=== PATIENT | female | born 2000 | race Caucasian/White ===

== ENCOUNTER → 2019-05-18 | Outpatient (CLI) | payer OTHER ==
[2019-05-18 12:26] LABS: INR 1.08; PARTIAL THROMBOPLASTIN TIME 26.8 SECONDS (25.0-38.4); PROTHROMBIN TIME 13.7 SECONDS (11.8-14.0)
[2019-05-18 12:44] LABS: ALBUMIN 3.7 GM/DL (3.2-5.2); ALT/SGPT 20 U/L (12-78); BILIRUBIN,DIRECT < 0.1 MG/DL (0.0-0.2); BILIRUBIN,TOTAL 0.3 MG/DL (0.2-1.0); IRON (FE) 49 UG/DL (50-170); PERCENT SATURATION 14.8 % (13.2-45.0); TOTAL IRON BINDING CAPACITY 332 UG/DL (250-450); TOTAL PROTEIN 7.6 GM/DL (6.4-8.2)
[2019-05-18 12:52] LABS: H PYLORI QUALITATIVE IgG NEGATIVE (NEGATIVE)
[2019-05-19 11:28] LABS: HEPATITIS C VIRUS ABY INDEX < 0.0 INDEX (<0.8)
[2019-05-19 13:06] LABS: HEPATITIS B SURFACE ANTIBODY NEGATIVE (POSITIVE)
[2019-05-19 13:16] LABS: HEPATITIS B SURFACE ANTIGEN NEGATIVE (NEGATIVE)
== END ==
LOC: M LAB 11:10
PROVIDERS: ATTEND Internal Medicine Gastroenterology
DX: K76.0 Fatty (change of) liver, not elsewhere classified (principal)

== ENCOUNTER → 2022-07-21 | Outpatient (REF) | payer OTHER | LOC: M SFHCWAGY 16:45 | PROVIDERS: ATTEND Specialist | DX: N39.0 Urinary tract infection, site not specified (principal) ==

== ENCOUNTER → 2022-08-04 | Outpatient (CLI) | payer BC, OTHER | LOC: M WHC 10:26 | PROVIDERS: ATTEND Advanced Practice Midwife | DX: O02.1 Missed abortion (principal) ==

== ENCOUNTER 2023-05-07 20:05 | Outpatient (CLI) | payer BC, OTHER ==
[~2023-05-07] VITALS: Ht 160 cm; Wt 87.4 kg
[2023-05-07 20:30] VITALS: BP 157/92; O2SAT 96
[2023-05-07] MEDS ORDERED: ACET-897 PO (20:31)
[2023-05-07] MEDS ORDERED: ASPI81CH33 PO (20:31)
[2023-05-07] MEDS ORDERED: LABE100T71 PO (20:31)
[2023-05-07] MEDS ORDERED: HOME MED LIST COMPLETE! XX SCH (20:35)
[2023-05-07 20:41] VITALS: BP 138/71
[2023-05-07 20:51] VITALS: BP 132/72
[2023-05-07 22:59] VITALS: BP 124/85
== END 2023-05-07 23:13 | disposition home or self-care (01) ==
LOC: M LDO 20:05
PROVIDERS: ATTEND Advanced Practice Midwife
DX: O26.892 Other specified pregnancy related conditions, second trimester (principal); R10.2 Pelvic and perineal pain; M54.50 Low back pain, unspecified; O09.812 Supervision of pregnancy resulting from assisted reproductive technology, second trimester; Z3A.20 20 weeks gestation of pregnancy
CPT/HCPCS: 59025; 76817; G0463

== ENCOUNTER 2023-06-06 20:34 | Outpatient (CLI) | payer BC, OTHER ==
[~2023-06-06] VITALS: Ht 160 cm; Wt 87.5 kg
[~2023-06-06 20:34] MED LIST: ACET-897 PO; ASPI81CH33 PO; LABE100T71 PO
[2023-06-06 20:58] VITALS: BP 123/87
[2023-06-06] MEDS ORDERED: MACR100C43 PO (23:37)
[2023-06-06] MEDS ORDERED: NITROFURANTOIN (MACROBID) 100 MG CAP PO ONE (23:40)
== END 2023-06-06 23:50 | disposition home or self-care (01) ==
LOC: M LDO 20:34
PROVIDERS: ATTEND Obstetrics & Gynecology
DX: O23.42 Unspecified infection of urinary tract in pregnancy, second trimester (principal); Z3A.25 25 weeks gestation of pregnancy

== ENCOUNTER 2023-07-06 14:30 | Outpatient (CLI) | payer BC, OTHER ==
[~2023-07-06] VITALS: Ht 160 cm; Wt 88.1 kg
[~2023-07-06 14:30] MED LIST changes: +LABE100T40 PO; -LABE100T71 PO; +MACR100C43 PO
[2023-07-06] MEDS ORDERED: OMEP40CA5 PO (14:43)
[2023-07-06] MEDS ORDERED: HOME MED LIST COMPLETE! XX SCH (14:45)
[2023-07-06 14:50] VITALS: BP 140/83
[2023-07-06 15:44] VITALS: BP 122/76
[2023-07-06 15:59] LABS: TOTAL PROTEIN,RANDOM URINE 7.9 MG/DL (0.0-14.0)
[2023-07-06 16:04] LABS: CREATININE,RANDOM URINE 59.6 MG/DL
[2023-07-06 16:14] VITALS: BP 121/73
[2023-07-06 16:15] LABS: URIC ACID 3.1 MG/DL (3.1-7.8)
[2023-07-06 16:17] LABS: LDH LACTATE DEHYDROGENASE 143 U/L (120-246)
[2023-07-06 16:18] LABS: ALT/SGPT 11 U/L (7.0-40); AST/SGOT 10 U/L (<34); BILIRUBIN,TOTAL 0.2 MG/DL (0.3-1.2); CREATININE FOR GFR 0.42 MG/DL (0.55-1.30); GLOMERULAR FILTRATION RATE > 60.0 (>60)
[2023-07-06 16:44] VITALS: BP 147/81
== END 2023-07-06 17:30 | disposition home or self-care (01) ==
LOC: M LDO 14:30
PROVIDERS: ATTEND Obstetrics & Gynecology
DX: O26.893 Other specified pregnancy related conditions, third trimester (principal); O10.013 Pre-existing essential hypertension complicating pregnancy, third trimester; R25.2 Cramp and spasm; R10.2 Pelvic and perineal pain; Z3A.29 29 weeks gestation of pregnancy
CPT/HCPCS: 36415; 59025; 82247; 82570; 83615; 84156; 84450; 84460; 84550; G0463